=== PATIENT | female | born 1950 | race Caucasian/White ===

== ENCOUNTER 2020-09-01 07:17 | Emergency (ER) | payer MEDICARE ==
[~2020-09-01 07:17] MED LIST: CIPRO500 MG PO; FLAGYL500 MG PO; NORCO 5-325 TA1 EACH PO
[2020-09-01 09:14] LABS: HEMOGLOBIN 13.4 gm/dl (12.3-15.3); RED BLOOD COUNT 4.75 M/UL (4.00-5.10); WHITE BLOOD COUNT 11.2 K/UL (4.5-11.0)
[2020-09-01 09:40] LABS: BUN/CREATININE RATIO 12 (0-10)
[2020-09-01] MEDS ORDERED: AUGMENTIN 875-1 EACH PO (12:11)
== END 2020-09-01 17:25 | disposition home or self-care (01) ==
LOC: ER1 07:17
PROVIDERS: Physician Assistant
DX: S30.860A Insect bite (nonvenomous) of lower back and pelvis, initial encounter (principal); K57.32 Diverticulitis of large intestine without perforation or abscess without bleeding; N39.0 Urinary tract infection, site not specified; W57.XXXA Bitten or stung by nonvenomous insect and other nonvenomous arthropods, initial encounter
CPT/HCPCS: 80053; 81001; 85025; 99284; Q9967

== ENCOUNTER 2021-03-23 11:42 | Emergency (ER) | payer MEDICARE, OTHER ==
[~2021-03-23] VITALS: Ht 170.2 cm; Wt 99.8 kg
[~2021-03-23 11:42] MED LIST changes: +AUGMENTIN 875-1 EACH PO
== END 2021-03-23 18:08 | disposition home or self-care (01) ==
LOC: ER1 11:42
DX: U07.1 COVID-19 (principal); Z23 Encounter for immunization
CPT/HCPCS: 0240U; 99283; M0245

== ENCOUNTER → 2021-04-16 | Outpatient (CLI) | payer MEDICARE, OTHER | LOC: RAD 11:42 | DX: M54.50 Low back pain, unspecified (principal); M51.36 Other intervertebral disc degeneration, lumbar region | CPT/HCPCS: 72110 ==